=== PATIENT | female | born 1995 | race American Indian/Alaskan Native ===

== ENCOUNTER 2019-09-24 09:20 | Emergency (ER) | payer OTHER ==
[2019-09-24 09:26] VITALS: BP 113/71
--- NOTE | 2019-09-24 09:50 | Emergency Department Report ---
ED Abdominal Pain HPI - General Chief Complaint: Abdominal Pain Stated Complaint: VOMITING/ABD PAIN/HEADACHE Time Seen by Provider: 09/24/19 09:48 Source: patient Mode of arrival: Ambulatory Limitations: No Limitations - History of Present Illness Initial Comments: 24 YO COMES TO ER WITH ABD CRAMPING FOR SEVERAL DAYS. PT IS . NO VAG BLEED OR DC NO FEVER OR CHILLS AMBULATORY NON ILL NON TOXIC MD Complaint: abdominal pain -: Gradual, days(s) Location: diffuse Quality: cramping Consistency: intermittent Improves With: nothing Worsens With: nothing Associated Symptoms: denies other symptoms - Related Data LMP (females 10-50): other Allergies Allergy/AdvReac Type Severity Reaction Status Date / Time No Known Allergies Allergy Verified 09/24/19 09:22 ED Review of Systems ROS: Stated complaint: VOMITING/ABD PAIN/HEADACHE Other details as noted in HPI Comment: All other systems reviewed and negative ED Past Medical Hx - Past Medical History Previous Medical History?: Yes Hx Seizures: Yes - Surgical History Past Surgical History?: No - Family History Family history: no significant - Social History Smoking Status: Current Every Day Smoker Substance Use Type: None ED Physical Exam - General Limitations: No Limitations General appearance: alert, in no apparent distress - Head Head exam: Present: atraumatic, normocephalic - Eye Eye exam: Present: normal appearance - ENT ENT exam: Present: mucous membranes moist - Neck Neck exam: Present: normal inspection - Respiratory Respiratory exam: Present: normal lung sounds bilaterally. Absent: respiratory distress - Cardiovascular Cardiovascular Exam: Present: regular rate, normal rhythm. Absent: systolic murmur, diastolic murmur, rubs, gallop - GI/Abdominal GI/Abdominal exam: Present: soft, normal bowel sounds - Extremities Exam Extremities exam: Present: normal inspection - Back Exam Back exam: Present: normal inspection - Neurological Exam Neurological exam: Present: alert, oriented X3 - Psychiatric Psychiatric exam: Present: normal affect, normal mood - Skin Skin exam: Present: warm, dry, intact, normal color. Absent: rash ED Course Vital Signs 09/24/19 09:25 Temperature 98.4 F Pulse Rate 60 Respiratory 18 Rate Blood Pressure 113/71 O2 Sat by Pulse 100 Oximetry ED Medical Decision Making - Lab Data Result diagrams: 09/24/19 09:50 09/24/19 09:50 - Radiology Data Radiology results: report reviewed, image reviewed - Medical Decision Making Labs 09/24/19 09/24/19 09/24/19 09:50 09:50 09:50 WBC 15.2 H RBC 5.24 H Hgb 12.2 Hct 38.4 MCV 73 L MCH 23 L MCHC 32 RDW 15.9 H Plt Count 290 Lymph % (Auto) 17.2 Hardy % (Auto) 4.9 Eos % (Auto) 0.5 Baso % (Auto) 0.6 Lymph # 2.6 Hardy # 0.8 Eos # 0.1 Baso # 0.1 Seg Neutrophils % 76.8 H Seg Neutrophils # 11.7 H Sodium 136 L Potassium 3.6 Chloride 101.8 Carbon Dioxide 21 L Anion Gap 17 BUN 6 L Creatinine 0.7 Estimated GFR > 60 BUN/Creatinine Ratio 9 Glucose 81 Calcium 9.6 Total Bilirubin 0.50 AST 13 ALT 7 Alkaline Phosphatase 42 Total Protein 7.6 Albumin 4.7 Albumin/Globulin Ratio 1.6 Lipase HCG, Qual Positive HCG, Quant Urine Color Urine Turbidity Urine pH Ur Specific [place] Urine Protein Urine Glucose (UA) Urine Ketones Urine Blood Urine Nitrite Urine Bilirubin Urine Urobilinogen Ur Leukocyte Esterase Urine WBC (Auto) Urine RBC (Auto) U Epithel Cells (Auto) Urine Bacteria (Auto) Urine Mucus 09/24/19 09/24/19 09/24/19 09:55 10:30 11:59 WBC RBC Hgb Hct MCV MCH MCHC RDW Plt Count Lymph % (Auto) Hardy % (Auto) Eos % (Auto) Baso % (Auto) Lymph # Hardy # Eos # Baso # Seg Neutrophils % Seg Neutrophils # Sodium Potassium Chloride Carbon Dioxide Anion Gap BUN Creatinine Estimated GFR BUN/Creatinine Ratio Glucose Calcium Total Bilirubin AST ALT Alkaline Phosphatase Total Protein Albumin Albumin/Globulin Ratio Lipase 13 HCG, Qual HCG, Quant 33851 H Urine Color Yellow Urine Turbidity Slightly-cloudy Urine pH 6.0 Ur Specific [place] 1.018 Urine Protein <15 mg/dl Urine Glucose (UA) Neg Urine Ketones 20 Urine Blood Neg Urine Nitrite Neg Urine Bilirubin Neg Urine Urobilinogen < 2.0 Ur Leukocyte Esterase Neg Urine WBC (Auto) 1.0 Urine RBC (Auto) 2.0 U Epithel Cells (Auto) 6.0 Urine Bacteria (Auto) 1+ Urine Mucus Few Vital Signs 09/24/19 09:25 Temperature 98.4 F Pulse Rate 60 Respiratory 18 Rate Blood Pressure 113/71 O2 Sat by Pulse 100 Oximetry URINE NOTED LABS NOTED VSS TAKING PO AMBULATORY US NOTED DC HOME WITH OBGYN FOLLOW UP. REFERRAL PROVIDED - Differential Diagnosis RO AB/UTI Critical care attestation.: If time is entered above; I have spent that time in minutes in the direct care of this critically ill patient, excluding procedure time. ED Disposition Clinical Impression: Disposition: DC-01 TO HOME OR SELFCARE Is pt being admited?: No Does the pt Need Aspirin: No Condition: Stable Instructions: (ED) Additional Instructions: OVER THE COUNTER VITAMIN FOLLOW UP WITH OB NEXT WEEK REFERRAL BELOW NO DRUGS/ALCOHOL OR CIG SMOKING DIET TOLERATED Referrals: CARL TELLEZ MD [Staff Physician] - 3-5 Days Time of Disposition: 11:46
[2019-09-24 10:10] LABS: Basophils # (Auto) 0.1 K/mm3 (0.0-0.1); Basophils % (Auto) 0.6 % (0.0-1.8); Eosinophils # (Auto) 0.1 K/mm3 (0.0-0.4); Eosinophils % (Auto) 0.5 % (0.0-4.3); Hematocrit 38.4 % (30.3-42.9); Hemoglobin 12.2 gm/dl (10.1-14.3); Lymphocytes # (Auto) 2.6 K/mm3 (1.2-5.4); Lymphocytes % (Auto) 17.2 % (13.4-35.0); Mean Corpuscular HGB Conc 32 % (30-34); Mean Corpuscular Volume 73 fl (79-97); Monocytes # (Auto) 0.8 K/mm3 (0.0-0.8); Monocytes % (Auto) 4.9 % (0.0-7.3); Platelet Count 290 K/mm3 (140-440); Red Blood Count 5.24 M/mm3 (3.65-5.03); Red Cell Distribution Width 15.9 % (13.2-15.2)
[2019-09-24 10:46] LABS: Bacteria,Urine 1+ /HPF (Negative); Bilirubin,Urine NEG (Negative); Blood,Urine NEG (Negative); Color,Urine Yellow (Yellow); Mucus,Urine FEW /HPF; Protein,Urine <15 mg/dL mg/dL (Negative); Urobilinogen,Urine < 2.0 mg/dL (<2.0)
[2019-09-24 10:51] LABS: Alanine Aminotransferase 7 units/L (7-56); Albumin 4.7 g/dL (3.9-5); BUN/Creatinine Ratio 9; Blood Urea Nitrogen 6 mg/dL (7-17); Calcium 9.6 mg/dL (8.4-10.2); Hemolysis Index 7
--- NOTE | 2019-09-24 11:33 | Ultrasound Report ---
ULTRASOUND OB LESS THAN 14 WEEKS FETUS ULTRASOUND OB TRANSVAGINAL HISTORY: Abdominal pain during COMPARISON: None. TECHNIQUE: Routine transabdominal and transvaginal OB ultrasound performed. FINDINGS: Uterus: The uterus is anteverted. The uterus measures 6.8 x 4.0 x 5.1 cm. No uterine mass is identif ied. Gestational Sac: Well-defined oval shape and intrauterine in location. Yolk Sac: Normal in appearance. Fetus/Embryo: [place]-rump length of 0.5 cm, corresponding to an estimated gestational age of 6 weeks 1 day. Embryonic/ anatomy is too small for evaluation. Embryonic/ cardiac activity: 101bpm Placenta: Too small for evaluation. Amniotic fluid volume: Subjectively appropriate for gestational age. Ovaries: The right ovary is normal in size and appearance with normal blood flow, measuring 3.1 x 2. 5 x 2.0 cm. The left ovary is normal in size and appearance with normal blood flow, measuring 2.7 x 1.2 x 2.7 cm. Hypoechoic space-occupying mass in the right ovary with peripheral vascularity is most likely the corpus luteum. Additional findings: None. IMPRESSION Early live intrauterine . No acute abnormality is detected. Signer Name: Rakan Carbajal Jr, MD Signed: 09/24/2019 11:28 AM Workstation Name: [id number]
== END 2019-09-24 12:08 | disposition home or self-care (01) ==
LOC: ED 09:20
DX: O26.891 Other specified pregnancy related conditions, first trimester (principal); O99.331 Smoking (tobacco) complicating pregnancy, first trimester; Z3A.14 14 weeks gestation of pregnancy
CPT/HCPCS: 36415; 76801; 76817; 80053; 81001; 83690; 84702; 84703; 85025; 87086; 99284

== ENCOUNTER 2019-12-19 16:38 | Emergency (ER) | payer OTHER ==
[2019-12-19 17:03] VITALS: BP 117/60
--- NOTE | 2019-12-19 17:05 | Emergency Department Report ---
Chief Complaint: Earache Stated Complaint: EAR INFECTION Time Seen by Provider: 12/19/19 17:04 - HPI History of Present Illness: right ear cerumen impaction MSE performed - Exam Vital Signs: Vital Signs 12/19/19 17:00 Temperature 98.3 F Pulse Rate 87 Respiratory 18 Rate Blood Pressure 117/60 O2 Sat by Pulse 100 Oximetry MSE screening note: Focused history and physical exam performed. Due to findings the following was ordered: ED Disposition for MSE Clinical Impression: Impacted cerumen of right ear Disposition: MED SCREENING EXAM-LEFT Condition: Stable
== END 2019-12-19 17:20 | disposition left against medical advice (07) ==
LOC: ED 16:38
DX: H61.21 Impacted cerumen, right ear (principal)
CPT/HCPCS: 99281

== ENCOUNTER 2020-12-24 06:28 | Emergency (ER) | payer MEDICAID, OTHER ==
--- NOTE | 2020-12-24 06:36 | Event Note ---
ED Screening Note Date of service: 12/24/20 Time: 06:34 ED Screening Note: Patient is a 25-year-old -[place] female who presents for abdominal pain cramping with nausea vomiting x2 weeks. States last menstrual cycle November 04. Positive test at home. Decided to present to ED after not been able to tolerate p.o. intake for the past 3 days. Patient denies fevers or chills. Patient has not seen MEDICAL LIAISON. She denies vaginal bleeding or pelvic pain. This initial assessment/diagnostic orders/clinical plan/treatment(s) is/are subject to change based on patients health status, clinical progression and re- assessment by fellow clinical providers in the ED. Further treatment and workup at subsequent clinical providers discretion. Patient/guardian urged not to elope from the ED as their condition may be serious if not clinically assessed and managed. Initial orders include: CBC, CMP, Lipase, HCG, UA
[2020-12-24 07:00] LABS: Bilirubin,Urine NEG (Negative); Blood,Urine MOD (Negative); Color,Urine Yellow (Yellow); Mucus,Urine 2+ /HPF
[2020-12-24 07:40] LABS: Basophils # (Auto) 0.1 K/mm3 (0.0-0.1); Basophils % (Auto) 0.7 % (0.0-1.8); Eosinophils % (Auto) 0.2 % (0.0-4.3); Hematocrit 38.9 % (30.3-42.9); Hemoglobin 12.5 gm/dl (10.1-14.3); Lymphocytes # (Auto) 1.6 K/mm3 (1.2-5.4); Lymphocytes % (Auto) 11.5 % (13.4-35.0); Mean Corpuscular HGB Conc 32 % (30-34); Mean Corpuscular Volume 71 fl (79-97); Monocytes # (Auto) 0.7 K/mm3 (0.0-0.8); Monocytes % (Auto) 4.9 % (0.0-7.3); Platelet Count 284 K/mm3 (140-440); Red Blood Count 5.51 M/mm3 (3.65-5.03); Red Cell Distribution Width 19.2 % (13.2-15.2)
[2020-12-24] MEDS ORDERED: ONDANSETRON 4 MG/2 ML INJ IV ONE (07:49)
[2020-12-24] MEDS ORDERED: SODIUM CHLORIDE 0.9% 1000 ML 1,000 ML IV ONE (07:49)
[2020-12-24 08:02] LABS: Alanine Aminotransferase 7 units/L (7-56); Albumin 4.7 g/dL (3.9-5); BUN/Creatinine Ratio 6; Blood Urea Nitrogen 5 mg/dL (7-17); Calcium 9.2 mg/dL (8.4-10.2); Hemolysis Index 3
--- NOTE | 2020-12-24 08:20 | Emergency Department Report ---
ED General Adult HPI - General Chief complaint: Nausea/Vomiting/Diarrhea Stated complaint: ?,DEHYDRATION Time Seen by Provider: 12/24/20 08:09 Source: patient Mode of arrival: Ambulatory Limitations: No Limitations - History of Present Illness Initial comments: This is a 25-year-old female who did a home test at home which was positive. She states that she got dehydrated with a previous and she thinks that was happening now. She has had some nausea and very minimal emesis. She denied any signs of GI bleeding. She had no diarrhea and no melanotic stools. She asks, "what is the good news", her blood test. She states that her last was 7 months ago at [facility]. He does not complain of abdominal pain fever chills or any apparent symptoms. Her last period was at the end of October 22 very early November and nothing subsequent. -: Gradual Consistency: now resolved Improves with: none Worsens with: none Associated Symptoms: denies other symptoms, other (Nausea and poor appetite for 3 days, not currently nauseated) Treatments Prior to Arrival: none - Related Data Previous Rx's Medication Instructions Recorded Last Taken Type Nitrofurantoin [place]/M-Cryst 100 mg PO Q12HR #14 capsule 12/24/20 Unknown Rx [Macrobid CAP] Allergies Allergy/AdvReac Type Severity Reaction Status Date / Time No Known Allergies Allergy Verified 09/24/19 09:22 ED Review of Systems ROS: Stated complaint: ?,DEHYDRATION Other details as noted in HPI Constitutional: denies: chills, fever Eyes: denies: eye pain, eye discharge, vision change ENT: denies: ear pain, throat pain Respiratory: denies: cough, shortness of breath, wheezing Cardiovascular: denies: chest pain, palpitations Endocrine: no symptoms reported Gastrointestinal: nausea. denies: abdominal pain, diarrhea Genitourinary: as per HPI, abnormal menses. denies: urgency, dysuria, discharge Musculoskeletal: denies: back pain, joint swelling, arthralgia Skin: denies: rash, lesions Neurological: denies: headache, weakness, paresthesias Psychiatric: denies: anxiety, depression Hematological/Lymphatic: denies: easy bleeding, easy bruising ED Past Medical Hx - Past Medical History Previous Medical History?: Yes Hx Seizures: Yes - Surgical History Past Surgical History?: No - Social History Smoking Status: Never Smoker Substance Use Type: None - Medications Home Medications: Home Medications Medication Instructions Recorded Confirmed Last Taken Type Nitrofurantoin [place]/M-Cryst 100 mg PO Q12HR #14 capsule 12/24/20 Unknown Rx [Macrobid CAP] ED Physical Exam - General Limitations: No Limitations General appearance: alert, in no apparent distress - Head Head exam: Present: atraumatic, normocephalic - Eye Eye exam: Present: normal appearance. Absent: scleral icterus - ENT ENT exam: Present: mucous membranes moist - Neck Neck exam: Present: normal inspection - Respiratory Respiratory exam: Present: normal lung sounds bilaterally. Absent: respiratory distress - Cardiovascular Cardiovascular Exam: Present: regular rate, normal rhythm. Absent: systolic murmur, diastolic murmur, rubs, gallop - GI/Abdominal GI/Abdominal exam: Present: soft, normal bowel sounds. Absent: distended, tenderness, guarding, rebound, rigid - Extremities Exam Extremities exam: Present: normal inspection - Back Exam Back exam: Present: normal inspection - Neurological Exam Neurological exam: Present: alert, oriented X3, CN II-XII intact. Absent: motor sensory deficit - Psychiatric Psychiatric exam: Present: normal affect, normal mood - Skin Skin exam: Present: warm, dry, intact, normal color. Absent: rash ED Course Vital Signs 12/24/20 12/24/20 12/24/20 06:30 08:03 08:10 Temperature 98.7 F Pulse Rate 68 52 L Respiratory 18 15 14 Rate Blood Pressure 127/67 Blood Pressure 111/58 [Right] O2 Sat by Pulse 100 100 Oximetry ED Medical Decision Making - Lab Data Result diagrams: 12/24/20 07:22 12/24/20 07:22 Critical care attestation.: If time is entered above; I have spent that time in minutes in the direct care of this critically ill patient, excluding procedure time. ED Disposition Clinical Impression: Volume depletion, 6 weeks gestation of UTI (urinary tract infection) Qualifiers: Urinary tract infection type: site unspecified Hematuria presence: with hematuria Qualified Code(s): N39.0 - Urinary tract infection, site not specified; R31.9 - Hematuria, unspecified Disposition: DC-01 TO HOME OR SELFCARE Is pt being admited?: No Does the pt Need Aspirin: No Condition: Stable Instructions: Rehydration, Adult, Urinary Tract Infection, Adult Additional Instructions: Follow-up on the urine culture that I had sent which will be ready in 3 days. This is to make sure that the antibiotic coverage is adequate. Follow-up with OB physician see referral. Increase fluids. Return to the emergency department any acute change or problem. Prescriptions: Nitrofurantoin [place]/M-Cryst [Macrobid CAP] 100 mg PO Q12HR #14 capsule Referrals: PRIMARY CARE [Primary Care Provider] - 3-5 Days [facility] [Provider Group] - 3-5 Days Time of Disposition: 10:37
--- NOTE | 2020-12-24 09:48 | Ultrasound Report ---
ULTRASOUND OBSTETRIC first trimester Indication: Early . Pelvic pain Findings: There is a single, living intrauterine . [place]-rump length = 0.3 cm = 5 weeks, 6 day(s). heart rate is 93 beats per minute. The ovaries are normal. There is no free fluid. Impression: Single, living early intrauterine with estimated sonographic age of 6 weeks, 2 day(s). Signer Name: Latrell Dowd MD Signed: 12/24/2020 9:43 AM Workstation Name: [employer]
[2020-12-24 10:52] VITALS: BP 121/67
== END 2020-12-24 10:52 | disposition home or self-care (01) ==
LOC: ED 06:28
DX: O23.41 Unspecified infection of urinary tract in pregnancy, first trimester (principal); O26.891 Other specified pregnancy related conditions, first trimester; E86.9 Volume depletion, unspecified; R56.9 Unspecified convulsions; Z3A.01 Less than 8 weeks gestation of pregnancy; Z79.899 Other long term (current) drug therapy
CPT/HCPCS: 36415; 76801; 76817; 80053; 81001; 83690; 84702; 85025; 87086; 96361; 96374; 99284; J2405; J7030

== ENCOUNTER 2021-02-10 06:15 | Emergency (ER) | payer MEDICAID ==
[2021-02-10] MEDS ORDERED: ONDANSETRON 4 MG/2 ML INJ IV ONE (07:40)
[2021-02-10] MEDS ORDERED: SODIUM CHLORIDE 0.9% 1000 ML 1,000 ML IV ONE (07:40)
--- NOTE | 2021-02-10 07:54 | Emergency Department Report ---
ED N/V/D HPI - General Chief complaint: Nausea/Vomiting/Diarrhea Stated complaint: 17 WEEKS , GREEN VOMIT PUI?: No Time Seen by Provider: 02/10/21 07:33 Source: patient Mode of arrival: Ambulatory Limitations: No Limitations - History of Present Illness Initial comments: 25-year-old female who is currently about 17 weeks based on her last menstrual cycle presents to the ER today with complaints of nausea and vomiting. Patient states that she has been suffering with mornings insomnia since she was about 6 weeks , but she states that last night seems like the nausea and vomiting worsened. She states that she has not been able to keep anything down. She reports decreased appetite. She also reports 3 episodes of diarrhea since last night. She states that she has pain in her abdomen but it is mainly lidia use of the vomiting. She denies any abnormal vaginal bleeding or discharge. She states that her [employer] is Dr. Russell Choe at [place]. She states that she has been prescribed B6 to take 25 mg daily as well as Reglan 10 mg to take 3 times a day but she states that she has not been able to tolerate them. She denies UTI symptoms. She denies fever, chills, ill contacts, bad food intake or recent travel. She states that she has not had an ultrasound as yet, she supposed to be having another visit with her [employer] in the couple weeks. She is Ab0. complaint: nausea, vomiting, diarrhea -: Last night - Related Data Previous Rx's Medication Instructions Recorded Last Taken Type Nitrofurantoin [place]/M-Cryst 100 mg PO Q12HR #14 capsule 12/24/20 Unknown Rx [Macrobid CAP] Ondansetron [Zofran Odt] 4 mg PO Q8HR #12 tab.rapdis 02/10/21 Unknown Rx Allergies Allergy/AdvReac Type Severity Reaction Status Date / Time No Known Allergies Allergy Verified 02/10/21 06:39 ED Review of Systems ROS: Stated complaint: 17 WEEKS , GREEN VOMIT Other details as noted in HPI Comment: All other systems reviewed and negative Constitutional: denies: chills, fever Eyes: denies: eye pain, eye discharge, vision change ENT: denies: ear pain, throat pain Respiratory: denies: cough, shortness of breath, wheezing Endocrine: no symptoms reported Gastrointestinal: abdominal pain, nausea, vomiting, diarrhea. denies: constipation, hematemesis, melena, hematochezia Genitourinary: denies: urgency, dysuria, frequency, hematuria, discharge, abnormal menses, dyspareunia Musculoskeletal: denies: back pain, joint swelling, arthralgia, myalgia Skin: denies: rash, lesions Neurological: denies: headache, weakness, numbness, paresthesias, confusion, abnormal gait, vertigo Psychiatric: denies: anxiety, depression, auditory hallucinations, visual hallucinations, homicidal thoughts, suicidal thoughts Hematological/Lymphatic: denies: easy bleeding, easy bruising ED Past Medical Hx - Past Medical History Previous Medical History?: No Hx Seizures: Yes - Surgical History Past Surgical History?: No - Social History Smoking Status: Never Smoker Substance Use Type: None - Medications Home Medications: Home Medications Medication Instructions Recorded Confirmed Last Taken Type Nitrofurantoin [place]/M-Cryst 100 mg PO Q12HR #14 capsule 12/24/20 Unknown Rx [Macrobid CAP] Ondansetron [Zofran Odt] 4 mg PO Q8HR #12 tab.rapdis 02/10/21 Unknown Rx ED Physical Exam - General Limitations: No Limitations General appearance: alert, in no apparent distress - Head Head exam: Present: atraumatic, normocephalic, normal inspection - Eye Eye exam: Present: normal appearance, EOMI Pupils: Present: normal accommodation - ENT ENT exam: Present: mucous membranes dry - Neck Neck exam: Present: normal inspection, full ROM - Respiratory Respiratory exam: Present: normal lung sounds bilaterally. Absent: respiratory distress - Cardiovascular Cardiovascular Exam: Present: regular rate, normal rhythm, normal heart sounds - GI/Abdominal GI/Abdominal exam: Present: soft. Absent: distended, tenderness, guarding, rebound - Neurological Exam Neurological exam: Present: alert, oriented X3, CN II-XII intact, normal gait - Psychiatric Psychiatric exam: Present: normal affect, normal mood - Skin Skin exam: Present: intact ED Course Vital Signs 02/10/21 02/10/21 06:40 10:07 Temperature 98.1 F Pulse Rate 79 82 Respiratory 20 20 Rate Blood Pressure 109/60 Blood Pressure 112/60 [Left] O2 Sat by Pulse 100 100 Oximetry ED Medical Decision Making - Lab Data Result diagrams: 02/10/21 07:46 02/10/21 07:46 - Radiology Data Radiology results: report reviewed Patient: MAURI RODRÍGUEZ MR#: [id number] : 1995 Acct:[id number] Age/Sex: 25 / F ADM Date: 02/10/21 Loc: ED Attending Dr: Ordering Physician: LOBO BLAND Date of Service: 02/10/21 Procedure(s): US OB <= 14 weeks fetus Accession Number(s): [id number] cc: LOBO BLAND ULTRASOUND OBSTETRIC INDICATION / CLINICAL INFORMATION: n/v/abd pain; 17 weeks preg. Clinical Gestational Age (GA): 13.0 weeks.days TECHNIQUE: Transabdominal. COMPARISON: 12/24/2020 ultrasound OB FINDINGS: GESTATIONAL SAC: 5.7 cm, well-defined without significant abnormality. YOLK SAC: No significant abnormality. EMBRYO/FETUS: No significant abnormality. - [place]-Rump Length = 6.2 cm = 12.4 weeks.days - Heart Rate, beats per minute (if present) = 153 ADNEXA: No significant abnormality. FREE FLUID: None. ADDITIONAL FINDINGS: Biparietal diameter is 2.1 cm with estimated gestational age of 13 weeks and 2 days. Placenta is fundal and demonstrates minimal subchorionic fluid suggesting hematoma. IMPRESSION: 1. Single, living intrauterine with estimated sonographic age of 12.5 weeks.days. 2. Small subchorionic hematoma. Signer Name: Amy Godoy MD Signed: 02/10/2021 8:51 AM Workstation Name: [id number] Transcribed By: RH Dictated By: AMY GODOY III Electronically Authenticated By: AMY GODOY III Signed Date/Time: 02/10/21850 DD/ 5 TD/TT: - Medical Decision Making 0950: Patient resting comfortably. She states that she feels better after fluids and IV Zofran. She was able to tolerate some p.o. fluids without any additional vomiting during stay. She is currently well-appearing, and resting without any distress. She is not toxic. She has a soft nontender abdomen. L abs reviewed and discussed with patient-- CMP unremarkable; CBC shows leukocytosis with a white count of 18, patient does admits that she has a history of elevated white counts and has been evaluated by city alderman about it; urinalysis does not suggest a UTI. I'm not concern for a bacterial infect ious process at this time. Her ultrasound shows that patient has a 12.5 week live IUP. Patient thought she was further along but her last menstrual cycle was actually towards the end of October 2020 (she cannot remember last date). Patient instructed to continue her B6 and a regular but will add Zofran as needed for additional nausea and vomiting control. Recommend that she keep her appointment with her [employer]. Patient expressed understanding of instructions and agree with plan. Patient was stable at time of discharge. Critical care attestation.: If time is entered above; I have spent that time in minutes in the direct care of this critically ill patient, excluding procedure time. ED Disposition Clinical Impression: Nausea and vomiting during , Diarrhea, Leukocytosis, unspecified Disposition: - TO HOME OR SELFCARE Is pt being admited?: No Does the pt Need Aspirin: No Condition: Stable Instructions: Nausea and Vomiting, Adult, [id number], Morning Sickness, Evsc-on-Nclx, Diarrhea, Adult, Whjz-at-Iksh, [place] Diet Additional Instructions: You can continue the B6, as well as the Reglan 3 times a day but she did not take the Zofran which was prescribed here today as needed for additional nausea and vomiting control. Drink lots of fluids. Follow-up with your [employer] as scheduled. Return to the ER if your symptoms changes or worsens in any way. Prescriptions: Ondansetron [Zofran Odt] 4 mg PO Q8HR #12 tab.rapdis Referrals: PRIMARY CARE, [Primary Care Provider] - 3-5 Days Time of Disposition: 09:47
[2021-02-10 08:08] LABS: Hematocrit 35.8 % (30.3-42.9); Hemoglobin 11.8 gm/dl (10.1-14.3); Mean Corpuscular HGB Conc 33 % (30-34); Mean Corpuscular Volume 70 fl (79-97); Platelet Count 250 K/mm3 (140-440); Red Blood Count 5.08 M/mm3 (3.65-5.03)
[2021-02-10 08:27] LABS: Alanine Aminotransferase 7 units/L (7-56); Albumin 3.9 g/dL (3.9-5); Blood Urea Nitrogen 8 mg/dL (7-17); Calcium 8.8 mg/dL (8.4-10.2); Hemolysis Index 0
[2021-02-10 08:39] LABS: BUN/Creatinine Ratio 11
[2021-02-10 08:46] LABS: Bilirubin,Urine NEG (Negative); Blood,Urine NEG (Negative); Color,Urine Yellow (Yellow); Mucus,Urine FEW /HPF; Urobilinogen,Urine < 2.0 mg/dL (<2.0)
--- NOTE | 2021-02-10 08:55 | Ultrasound Report ---
ULTRASOUND OBSTETRIC INDICATION / CLINICAL INFORMATION: n/v/abd pain; 17 weeks preg. Clinical Gestational Age (GA): 13.0 weeks.days TECHNIQUE: Transabdominal. COMPARISON: 12/24/2020 ultrasound OB FINDINGS: GESTATIONAL SAC: 5.7 cm, well-defined without significant abnormality. YOLK SAC: No significant abnormality. EMBRYO/FETUS: No significant abnormality. - [place]-Rump Length = 6.2 cm = 12.4 weeks.days - Heart Rate, beats per minute (if present) = 153 ADNEXA: No significant abnormality. FREE FLUID: None. ADDITIONAL FINDINGS: Biparietal diameter is 2.1 cm with estimated gestational age of 13 weeks and 2 d ays. Placenta is fundal and demonstrates minimal subchorionic fluid suggesting hematoma. IMPRESSION: 1. Single, living intrauterine with estimated sonographic age of 12.5 weeks.days. 2. Small subchorionic hematoma. Signer Name: Margarito Godoy MD Signed: 02/10/2021 8:51 AM Workstation Name: [id number]
[2021-02-10 10:08] VITALS: BP 112/60
[2021-02-10 10:33] LABS: Hypochromasia 1+; Total Cells Counted 100
[2021-02-10 10:34] LABS: Ovalocytes Few; Schistocytes Rare
[2021-02-10 10:35] LABS: Platelet Estimate Consistent w Auto
== END 2021-02-10 10:07 | disposition home or self-care (01) ==
LOC: ED 06:15
DX: O21.8 Other vomiting complicating pregnancy (principal); O26.891 Other specified pregnancy related conditions, first trimester; R19.7 Diarrhea, unspecified; D72.829 Elevated white blood cell count, unspecified; G40.909 Epilepsy, unspecified, not intractable, without status epilepticus; Z79.899 Other long term (current) drug therapy; Z3A.13 13 weeks gestation of pregnancy
CPT/HCPCS: 36415; 76801; 80053; 81001; 83690; 84702; 85007; 85025; 96361; 96374; 99284; J2405; J7030

== ENCOUNTER 2021-05-24 09:58 | Outpatient (CLI) | payer MEDICAID | END 2021-05-24 10:59 | disposition home or self-care (01) | LOC: TRG 09:58 → APU 09:59 | CPT/HCPCS: 59025 ==